=== PATIENT | female | born 1945 | race Caucasian/White ===

== ENCOUNTER 2021-11-23 11:40 | Outpatient (CLI) | payer MEDICARE | END 2021-11-23 11:41 | disposition home or self-care (01) | LOC: CSHMAMMO 11:40 | PROVIDERS: ATTEND Family Medicine | DX: Z12.31 Encounter for screening mammogram for malignant neoplasm of breast (principal) | CPT/HCPCS: 77063; 77067 ==

== ENCOUNTER 2021-11-26 11:00 | Outpatient (CLI) | payer MEDICARE | END 2021-11-26 12:00 | disposition home or self-care (01) | LOC: CSHCP 11:00 | PROVIDERS: ATTEND Family Medicine | DX: R06.09 Other forms of dyspnea (principal); Z87.09 Personal history of other diseases of the respiratory system | CPT/HCPCS: 94010; 94726; 94729; 94760 ==

== ENCOUNTER 2021-12-02 12:37 | Outpatient (CLI) | payer MEDICARE | END 2021-12-02 12:38 | disposition home or self-care (01) | LOC: CSHULT 12:37 | PROVIDERS: ATTEND Family Medicine | DX: R06.02 Shortness of breath (principal); I38 Endocarditis, valve unspecified; K76.89 Other specified diseases of liver | CPT/HCPCS: 93306 ==